=== PATIENT | female | born 1935 | race Caucasian/White ===

== ENCOUNTER → 2019-08-24 | Outpatient (CLI) | payer MEDICARE, BC, OTHER ==
[~2019-08-24] MED LIST: ALPR0.25 PO; ASPI81TA85 PO; ESCI10TA2 PO; ESCI20TA PO; LOSA100T8 PO; METO50TA7 PO; OMEP20CA4 PO; ROSU10TA6 PO; TURM500C PO
[2019-08-24 11:01] LABS: HEMATOCRIT 39.3 % (36.0-47.0); HEMOGLOBIN 12.4 g/dl (12.0-15.5); MEAN CORPUSCULAR HEMOGLOBIN 26.8 pg (27.0-33.0); MEAN CORPUSCULAR HGB CONC 31.6 g/dl (32.0-36.5); MEAN CORPUSCULAR VOLUME 84.9 fl (80.0-96.0); PLATELET COUNT, AUTOMATED 278 10^3/uL (150-450); RED BLOOD COUNT 4.63 10^6/uL (4.00-5.40); WHITE BLOOD COUNT 6.8 10^3/uL (4.0-10.0)
[2019-08-24 11:19] LABS: INR 1.15; PROTHROMBIN TIME 14.4 SECONDS (11.8-14.0)
--- NOTE | 2019-08-24 11:19 | REP ---
Clinical: Preoperative assessment . Comparison: None . Technique: PA and lateral. Findings: The mediastinum and cardiac silhouette are normal. 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 The lung sifuentes are clear and without acute consolidation, effusion, or pneumothorax. The skeletal structures are intact and normal. Impression: 1. No acute cardiopulmonary process. Electronically Signed by Chi Baker MD 08/24/2019 11:11 A
[2019-08-24 11:27] LABS: ERYTHROCYTE SEDIMENTATION RATE 28 mm/hr (0-30)
[2019-08-24 11:28] LABS: ALBUMIN 3.4 GM/DL (3.2-5.2); BILIRUBIN,TOTAL 0.5 MG/DL (0.2-1.0); CALCIUM LEVEL 9.4 MG/DL (8.8-10.2); CREATININE FOR GFR 1.14 MG/DL (0.55-1.30); GLOMERULAR FILTRATION RATE 48.2 (>32); POTASSIUM SERUM 3.8 MEQ/L (3.5-5.1); TOTAL PROTEIN 8.1 GM/DL (6.4-8.2)
--- NOTE | 2019-08-25 07:59 | ECGEPIP ---
[facility] Test Date: 2019-08-24 Pat Name: LARISA BROWN Department: Room: - Gender: Female Him Tech: JUAN M : 1935 Requested By: Félix Daniels @ [facility] Order Number: [id number] Reading MD: Edward Gordon Measurements Intervals [place] Rate: 70 P: -83 [place]: 279 QRS: 0 QRSD: 141 T: -14 QT: 443 QTc: 481 Interpretive Statements ELECTRONIC ATRIAL PACEMAKER ELECTRONIC VENTRICULAR PACEMAKER Comparison tracing not on file Electronically Signed on 08-25-2019 7:59:35 EST by Edward Gordon
== END ==
LOC: M LAB 10:07
PROVIDERS: ATTEND Orthopaedic Surgery
DX: M17.12 Unilateral primary osteoarthritis, left knee (principal); Z79.01 Long term (current) use of anticoagulants